=== PATIENT | male | born 1950 | race Caucasian/White ===

== ENCOUNTER 2017-12-25 08:56 | Day surgery (SDC) | payer OTHER ==
[2017-12-19 12:48] VITALS: BMI 27.8
[2017-12-25] MEDS ORDERED: TETRACAINE 0.5% OPHTH SOLN 2 ML BOTTLE ONE (11:42)
[2017-12-25] MEDS ORDERED: POVIDONE-IODINE 5% OPHTHALMIC PREP 30 ML SOLUTION ONE (11:42)
[2017-12-25] MEDS ORDERED: BUPIVACAINE HCL/PF 0.5% (5MG/ML) 10 ML VIAL ONE (11:42)
[2017-12-25] MEDS ORDERED: LIDOCAINE 1%/EPI 1:100000 (20 ML MULTI DOSE VIAL) ONE (11:42)
[2017-12-25] MEDS ORDERED: BACITRACIN 3.5 GM OPTHALMIC OINT TUBE ONE (11:43)
[2017-12-25] MEDS ORDERED: PROPOFOL 20 ML ONE ×4 (12:35→13:30)
[2017-12-25] MEDS ORDERED: oxyCODONE HCL 5 MG TABLET PO PRN (14:13)
[2017-12-25] MEDS ORDERED: ONDANSETRON 4 MG/2 ML VIAL IVPUSH PRN (14:13)
[2017-12-25] MEDS ORDERED: LACTATED RINGERS SOLUTION 1,000 ML IV SCH (14:15)
[2017-12-25 16:04] VITALS: BP 131/80; PULSE 72; TEMP 98.2
--- NOTE | 2017-12-26 12:13 | OP ---
DATE OF OPERATION: 12/25/2017 PREOPERATIVE DIAGNOSIS: Extensive defect, left lower eyelid and left cheek status post Mohs excision of carcinoma. POSTOPERATIVE DIAGNOSIS: Extensive defect, left lower eyelid and left cheek status post Mohs excision of carcinoma. PROCEDURE: 1. Debridement and tailoring of defect, left lower lid and left cheek. 2. Conjunctivoplasty, left inferior fornix with conjunctival flap. 3. Dorsal conjunctival from the left upper lid to the left lower lid. 4. Full-thickness skin graft on the left postauricular region to the left lower lid. SURGEON: Nadia Goel MD ANESTHESIA: Local with sedation. Medical student named Kaitlyn. COMPLICATIONS: None. ESTIMATED BLOOD LOSS: 5 mL DESCRIPTION OF OPERATIVE PROCEDURE: Patient brought to the operating room and placed on the operating table. Vital signs monitored by Anesthesia. Tetracaine was placed in both eyes. The wound was photographed. Timeout was performed. A 50/50 mixture of 2% Xylocaine with 1:100,000 epinephrine and 0.5% Marcaine was administered throughout the left lower lid, as well as centrally in the left upper lid and in eversion that is underneath the conjunctiva just above the tarsus. The patient was massaged for hemostasis, prepped and draped in the usual sterile fashion. The left ear was also injected in the pretragal and helical regions, and this was prepped as well. After the patient was prepped and draped, exposing both eyes and the ear, a 4-0 silk traction suture was passed through the central lid margin of the upper lid and below. Portion of the eyelid was debrided. The conjunctival flap was dissected off with retractors and allowed to be mobilized free from the lower lid to bring it up toward the . An incision was made in the upper lid with a number-11 blade, through the medial and lateral tiny remnant of the eyelids. An anterior and posterior lamella there in these 2 remnants with the exposed tarsus for attachment of the tarsus conjunctival graft. The upper lid was everted over a Desmarres retractor. The 2 lateral and medial portions of the eyelid were advanced centrally and measured and found to be 19 mm in width. Therefore, a 19-20 mm-wide tarsal conjunctival graft was harvested from the central left upper lid through full-thickness tarsus. Tarsus was flipped inferiorly and dissected off of Smiley's muscle, creating a tarsoconjunctival flap or graft. This was dissected up into the superior fornix until it rested freely in the defect in the lower lid. Tarsal conjunctival graft in the upper lid was secured to the medial and lateral remnants of the lower lid with interrupted 7-0 Vicryl sutures, creating the posterior lamella. The inferior edge of the tarsoconjunctival graft was secured to the previously freed up conjunctival flap and inferior fornix with a running 6-0 chromic, avoiding any attachment to on the bulbar surface. This completed the posterior lamella. Graft template was placed, and the graft template was then oriented on the postauricular surface of the left ear. The left ear helix was sutured to the pretragal region with 2 interrupted 4-0 silk sutures, and the graft side of that was marked. It was then injected with 2% Xylocaine with 1:100,000 epinephrine for a total of 3-4 mL around the graft of the ear, and then, the graft was harvested by incising the perimeter with a 15 blade and dissecting it off with Carlos scissors and Moiz scissors. Hemostasis was achieved with Daggett needle, and the postauricular wound was closed with running 3-0 chromic suture, reinforced with interrupted 3-0 chromic sutures, everting the skin edges. [place] sutures were removed. The graft was freed of all subcutaneous tissue and pie crusted with a number 11 blade, and it was sutured in with plastic technique to the lower defect of the cheek and eyelid, suturing it to the new eyelid margin with running 6-0 chromic suture to the tarsoconjunctival graft and suturing it with 6-0 plain suture nasally and temporally and 5-0 plain suture inferiorly with plastic technique and recreating the anterior lamella. Strips of Telfa and bacitracin ointment were placed on the skin graft and the eye, and a dental roll was tied over with 4-0 silk from the cheek to the upper eyelid with the sutures which had been previously placed, creating gentle fixation of the suture of the dental roll over the graft. The suture rolls were passed through the dental roll to secure it in position. The eyelid was closed. Strip Telfa and eye pads and gentle fluff were then placed over the eye and secured there with Mastisol and paper tape. Xeroform and gauze were placed behind the left ear. The patient was taken to recovery room in stable condition. NADIA GOEL M.D. [id number]
== END 2017-12-25 16:06 | disposition home or self-care (01) ==
LOC: FASU 08:56
PROVIDERS: ATTEND Ophthalmology
PROC: 08URX7Z Supplement Left Lower Eyelid with Autologous Tissue Substitute, External Approach (ICD-10-PCS; 2017-12-25)
PROC: 08BR0ZZ Excision of Left Lower Eyelid, Open Approach (ICD-10-PCS; principal; 2017-12-25 12:30)
DX: C44.119 Basal cell carcinoma of skin of left eyelid, including canthus (principal); H02.89 Other specified disorders of eyelid
CPT/HCPCS: 94760

== ENCOUNTER 2018-01-29 08:25 | Day surgery (SDC) | payer OTHER ==
[2018-01-25 10:35] VITALS: BMI 29.2
[2018-01-29] MEDS ORDERED: MIDAZOLAM HCL 2 MG/2 ML SINGLE DOSE VIAL ONE (09:13)
[2018-01-29] MEDS ORDERED: ONDANSETRON 4 MG/2 ML VIAL IVPUSH PRN (09:52)
[2018-01-29] MEDS ORDERED: oxyCODONE HCL 5 MG TABLET PO PRN ×2 (09:52)
[2018-01-29] MEDS ORDERED: BACITRACIN 3.5 GM OPTHALMIC OINT TUBE ONE (09:56)
[2018-01-29] MEDS ORDERED: BUPIVACAINE HCL/PF 0.5% (5MG/ML) 10 ML VIAL ONE (09:57)
[2018-01-29] MEDS ORDERED: POVIDONE-IODINE 5% OPHTHALMIC PREP 30 ML SOLUTION ONE (09:57)
[2018-01-29] MEDS ORDERED: TETRACAINE 0.5% OPHTH SOLN 2 ML BOTTLE ONE (09:57)
[2018-01-29] MEDS ORDERED: LIDOCAINE 1%/EPI 1:100000 (20 ML MULTI DOSE VIAL) ONE (09:57)
[2018-01-29] MEDS ORDERED: LACTATED RINGERS SOLUTION 1,000 ML IV SCH (10:00)
[2018-01-29] MEDS ORDERED: ceFAZolin SODIUM 1 GM VIAL ONE (10:17)
[2018-01-29] MEDS ORDERED: ONDANSETRON 4 MG/2 ML VIAL ONE (11:26)
[2018-01-29] MEDS ORDERED: ACETAMINOPHEN 325 MG TABLET (FP) ONE (12:01)
[2018-01-29] MEDS ORDERED: ACETAMINOPHEN 325 MG TABLET (FP) PO ONE (12:39)
--- NOTE | 2018-01-29 13:03 | OP ---
DATE OF OPERATION: 01/29/2018 PREOPERATIVE DIAGNOSIS: Ankyloblepharon, left, status post reconstruction of lower lid for basal cell carcinoma. POSTOPERATIVE DIAGNOSIS: Ankyloblepharon, left, status post reconstruction of lower lid for basal cell carcinoma. PROCEDURE: 1. Excision of ankyloblepharon, left upper lid. 2. Reconstruction of the margin of the left lower lid. SURGEON: Nadia Goel MD ANESTHESIA: Local with sedation. COMPLICATIONS: None. ESTIMATED BLOOD LOSS: 1-2 mL DESCRIPTION OF OPERATION: Patient brought to the operating room, placed on the operating room table. Vital signs were monitored by Anesthesia. Timeout was performed. Tetracaine was placed in both eyes. The site was confirmed. A marking pen was used to terence the new margin of the left lower lid. After which, intravenous sedation was administered, and 2% Xylocaine with 1:100,000 epinephrine and 0.5% Marcaine were injected into the body of the ankyloblepharon, into the upper lid, and into the lower lid as well for anesthesia and to satisfy hemostasis. Patient was prepped and draped in the usual sterile fashion, exposing both eyes. A 4-0 silk traction stitch was passed through the margin of the left upper lid and clamped in a hemostat superiorly. The ankyloblepharon was incised with a Moiz scissor, beveling the incision site conjunctiva relative to the new margin of the skin. Once this was released across the eye, the anterior and middle lamella were trimmed as needed, and the conjunctiva was sewn over the margin of the eyelid and tailored as needed and was sewn with a running 6-0 plain suture until the margin was reconstructed entirely. A small amount of trimming was performed to create a nice smooth contour. The lid was everted over Desmarres retractor, and the ankyloblepharon was completely removed. The base of the blepharon was cauterized as needed for hemostasis. Bacitracin ointment was placed in the eye and on the sutures of the lower lid, and the patient was taken to the recovery room in stable condition. NADIA GOEL M.D. [id number]
[2018-01-29 13:28] VITALS: TEMP 97.9
[2018-01-29 13:31] VITALS: BP 99/64; PULSE 72
--- NOTE | 2018-01-31 16:46 | PATH ---
Surgical Pathology Report Patient Name: WILFRID HUMPHRIES [facility]. Rec. #: [id number] /Age/Gender: 1950 (Age: 67) / M Account: [id number] Location: [facility] Taken: 01/29/2018 Received: 01/29/2018 Reported: 01/31/2018 Physicians: Young Rivera Specimen(s) Received LEFT ANKYLOBLEPHARON Clinical History Basal cell cancer left lower eyelid Opening of graft left eye Final Diagnosis ANKYLOBLEPHARON, LEFT, EXCISION: EYELID TISSUE SHOWING CHRONIC INFLAMMATION, GRANULATION TISSUE AND DENSE FIBROSIS. Electronically Signed Hafsa Giles M.D. Gross Description Received in formalin labeled "left ankyloblepharon," is a 1.0 x 0.3 x 0.3 cm portion of brower tissue. The base is inked blue and the specimen is sectioned and entirely submitted in 2 cassettes as follows: 1-undesignated tips; 2-central portion of specimen. 01/30/201801/30/2018
== END 2018-01-29 12:35 | disposition home or self-care (01) ==
LOC: FASU 08:25
PROVIDERS: ATTEND Ophthalmology
PROC: 0HB1XZZ Excision of Face Skin, External Approach (ICD-10-PCS; principal; 2018-01-29 10:27)
DX: C44.119 Basal cell carcinoma of skin of left eyelid, including canthus (principal); H02.525 Blepharophimosis left lower eyelid
CPT/HCPCS: 88304-TC; 94760